=== PATIENT | male | born 1940 | race Caucasian/White ===

== ENCOUNTER 2017-01-01 09:29 | Emergency (ER) | payer MEDICARE ==
[~2017-01-01] VITALS: Ht 167.6 cm; Wt 73.0 kg
[~2017-01-01 09:29] MED LIST: ADVA250A INH; PROS5TAB2 PO; TAMS0.4C67 PO
[2017-01-01 09:35] VITALS: BP 129/84; PULSE 88; RESP 15; TEMP 97.5; O2SAT 100
[2017-01-01] MEDS ORDERED: TRIA37.5 PO (09:45)
[2017-01-01] MEDS ORDERED: FINA5TAB2 PO (09:45)
[2017-01-01] MEDS ORDERED: TAMS0.4C4 PO (09:45)
[2017-01-01] MEDS ORDERED: OXYC1CAP PO ×2 (09:45→13:43)
[2017-01-01] MEDS ORDERED: HYDROmorphone HCL PF 1 MG/ML VIAL IVS ONE (10:00)
[2017-01-01] MEDS ORDERED: SODIUM CHLORIDE 0.9% FLUSH 10 ML FLUSH IVF PRN (10:00)
[2017-01-01] MEDS ORDERED: ONDANSETRON HCL 4 MG/2 ML VIAL IVP ONE (10:00)
[2017-01-01 10:13] VITALS: O2SAT 96
[2017-01-01 10:16] LABS: AUTOMATED NEUTROPHIL # 6.6 TH/MM3 (1.8-7.7); BASOPHIL # 0.2 TH/MM3 (0-0.2); BASOPHIL % 2.4 % (0.0-2.0); EOSINOPHIL # 0.3 TH/MM3 (0-0.4); HEMATOCRIT 38.9 % (39.0-51.0); LYMPH % 7.2 % (9.0-44.0); LYMPHOCYTE # 0.6 TH/MM3 (1.0-4.8); MEAN CELL VOLUME 95.8 FL (80.0-100.0); MEAN CORPUSCULAR HGB CONC 33.4 % (32.0-36.0); MONO % 8.5 % (0.0-8.0); NEUT % 78.9 % (16.0-70.0); PLATELET COUNT 159 TH/MM3 (150-450); RED BLOOD COUNT 4.06 MIL/MM3 (4.50-5.90); RED CELL DISTRIBUTION WIDTH 15.2 % (11.6-17.2); WHITE BLOOD COUNT 8.4 TH/MM3 (4.0-11.0)
[2017-01-01 10:20] LABS: HEMO FLAGS DIFF FINAL
--- NOTE | 2017-01-01 10:40 | PD ---
HPI Chief Complaint: Pain: Acute or Chronic Time Seen by Provider: 09:48 Travel History International Travel<30 days: No Contact w/Intl Traveler<30days: No Traveled to known affect area: No History of Present Illness HPI 76 -year-old male has chronic back pain. He has undergone various different procedures by a spine interventionalist in [place]. Evidently he's been unable to get in touch with this clinician despite severe constant back pain following the interventions. The patient notes pain radiating from the right back to the region of the heel on the right side. Full extension of the knee causes pain to radiate to the right back from the leg. He's had no fever. He reports that due to pain he is unable to walk. He also believes he is weak in the right leg on account of chronic back disease. He has lymphoma and has undergone chemotherapy most recently 1 month prior. No overflow urinary incontinence. No change in bowel habits. No perianal/perineal paresthesia. PFSH Past Medical History Arthritis: Yes Cancer: Yes (LUNG CANCER,LYMPHOMA) Cardiovascular Problems: Yes (RIGHT BBB, HIGH CHOLESTEROL) Chemotherapy: Yes (2-3 WEEKS AGO) Diabetes: No Diminished Hearing: No Endocrine: No Gastrointestinal Disorders: Yes (reflux) Genitourinary: Yes (BPH-ENLARGED PROSTATE) Hepatitis: No Hiatal Hernia: No Hypertension: Yes Immune Disorder: No Implanted Vascular Access Dvce: Yes (LT CHEST) Musculoskeletal: Yes (BACK PAIN, NECK PAIN) Neurologic: No Psychiatric: No Reproductive: No Respiratory: Yes ( LEFT LOWER LOBE REMOVED) Immunizations Current: Yes Thyroid Disease: No ?: Not Past Surgical History Abdominal Surgery: Yes (TRIPLE HERNIA REPAIR) AICD: No Body Medical Devices: MESH, LEFT CHEST PORT Cardiac Surgery: No Ear Surgery: No Endocrine Surgery: No Eye Surgery: Yes (LASIX) Genitourinary Surgery: Yes (KIDENY STONE EXTRACTION) Joint Replacement: No Oral Surgery: No Pacemaker: No Thoracic Surgery: Yes (LEFT LOWER LOBECTOMY, LEFT CHEST PORT) Other Surgery: Yes Social History Alcohol Use: Yes (WINE DAILY) Tobacco Use: No Substance Use: No Allergies-Medications (Allergen,Severity, Reaction): Coded Allergies: No Known Allergies (Verified , 01/01/17) Reported Meds & Prescriptions Reported Meds & Active Scripts Active Lortab (Hydrocodone-Acetaminophen) 7.5-325 Mg Tab 1-2 Tab PO Q6H PRN Oxycodone (Oxycodone HCl) 5 Mg Cap 5 Mg PO Q8H PRN Reported Oxycodone (Oxycodone HCl) 5 Mg Cap Unknown Dose PO Q4H PRN Triamterene-Hydrochlorothiazide 37.5-25 Mg Tab 1 Tab PO DAILY Finasteride 5 Mg Tab 5 Mg PO DAILY Do not crush. Tamsulosin (Tamsulosin HCl) 0.4 Mg Cap Unknown Dose PO HS Review of Systems Except as stated in HPI: all other systems reviewed are Neg General / Constitutional: No: Fever, Chills Physical Exam Narrative GENERAL: 76 yo M, NAD, WNWD SKIN: Warm and dry. HEAD: Atraumatic. Normocephalic. EYES: Pupils equal and round. No scleral icterus. No injection or drainage. ENT: No nasal bleeding or discharge. Mucous membranes pink and moist. NECK: Trachea midline. No JVD. CARDIOVASCULAR: Regular rate and rhythm. RESPIRATORY: No accessory muscle use. Clear to auscultation. Breath sounds equal bilaterally. GASTROINTESTINAL: Abdomen soft, non-tender, nondistended. Hepatic and splenic margins not palpable. MUSCULOSKELETAL: Extremities without clubbing, cyanosis, or edema. No obvious deformities. NEUROLOGICAL: PSYCHIATRIC: Appropriate mood and affect; insight and judgment normal. Data Data Last Documented VS Vital Signs Date Time Temp Pulse Resp B/P Pulse Ox O2 Delivery O2 Flow Rate FiO2 01/01/17 11:36 76 18 122/78 99 01/01/17 09:35 97.5 Orders Complete Blood Count With Diff (01/01/17 09:57) Basic Metabolic Panel (Bmp) (01/01/17 09:57) Westergren Sedimentation Rate (01/01/17 09:57) C-Reactive Protein (Crp) (01/01/17 09:57) Ecg Monitoring (01/01/17 09:57) Iv Access Insert/Monitor (01/01/17 09:57) Oximetry (01/01/17 09:57) Sodium Chloride 0.9% Flush (Ns Flush) (01/01/17 10:00) Ondansetron Inj (Zofran Inj) (01/01/17 10:00) Hydromorphone Pf Inj (Dilaudid Pf Inj) (01/01/17 10:00) Lorazepam Inj (Ativan Inj) (01/01/17 10:45) Mri L Spine W/O Contrast (01/01/17 ) Mri T Spine W/O Contrast (01/01/17 ) Labs Laboratory Tests Test 01/01/17 10:09 White Blood Count 8.4 TH/MM3 Red Blood Count 4.06 MIL/MM3 Hemoglobin 13.0 GM/DL Hematocrit 38.9 % Mean Corpuscular Volume 95.8 FL Mean Corpuscular Hemoglobin 32.0 PG Mean Corpuscular Hemoglobin 33.4 % Concent Red Cell Distribution Width 15.2 % Platelet Count 159 TH/MM3 Mean Platelet Volume 8.2 FL Neutrophils (%) (Auto) 78.9 % Lymphocytes (%) (Auto) 7.2 % Monocytes (%) (Auto) 8.5 % Eosinophils (%) (Auto) 3.0 % Basophils (%) (Auto) 2.4 % Neutrophils # (Auto) 6.6 TH/MM3 Lymphocytes # (Auto) 0.6 TH/MM3 Monocytes # (Auto) 0.7 TH/MM3 Eosinophils # (Auto) 0.3 TH/MM3 Basophils # (Auto) 0.2 TH/MM3 CBC Comment DIFF FINAL Differential Comment Erythrocyte Sedimentation Rate 1 mm/hr Sodium Level 139 MEQ/L Potassium Level 3.4 MEQ/L Chloride Level 102 MEQ/L Carbon Dioxide Level 29.8 MEQ/L Anion Gap 7 MEQ/L Blood Urea Nitrogen 46 MG/DL Creatinine 2.40 MG/DL Estimat Glomerular Filtration 26 ML/MIN Rate Random Glucose 114 MG/DL Calcium Level 9.5 MG/DL C-Reactive Protein 0.45 MG/DL [facility] Medical Decision Making Medical Screen Exam Complete: Yes Emergency Medical Condition: Yes Medical Record Reviewed: Yes Differential Diagnosis epidural abscess, paraspinal hematoma, cauda equina, spinal stenosis, Narrative Course CBC & BMP Diagram 01/01/17 10:09 ESR 1 CRP 0.45 Last 24 hours Impressions Thoracic Spine MRI 01/01/17 0000 Signed Impressions: Service Date/Time: Sunday, January 01, 2017 12:28 - CONCLUSION: 1. No evidence of metastatic disease in the thoracic spine. 2. Degenerative findings. Central canal diameter and neural foraminal diameters within normal limits at all levels. Gómez Georges MD Lumbar Spine MRI 01/01/17 0000 Signed Impressions: Service Date/Time: Sunday, January 01, 2017 12:28 - CONCLUSION: Multilevel degenerative findings. No evidence of metastatic disease. 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 Gómez Georges MD The patient is resting comfortably and feels better, is alert and in no distress. The patients results and examination findings were discussed. The repeat examination is unremarkable and benign. The history, exam, diagnostic testing, and current condition do not suggest any significant pathology to warrant further testing, continued ED treatment, admission, or surgical evaluation at this point. The vital signs have been stable. The patient does not have uncontrollable pain, intractable vomiting, or other significant symptoms. The patient's condition is stable and appropriate for discharge. The patient will pursue further outpatient evaluation with a primary care physician or other designated or consulting physician as indicated in the discharge instructions. The patient expressed understanding and was agreeable with this plan. Diagnosis Primary Impression: Low back pain Qualified Code: M54.41 - Chronic midline low back pain with right-sided sciatica Referrals: Eugenio Kendrick MD,Torey Heard MD, MD Additional Instructions: You have a choice when it comes to health care, and we are glad that you chose [facility]. Hopefully, we have met your expectations on today's visit. You are welcome to return to [facility] at any time, as we are committed to meeting the health care needs of our community. Med/Other Pt SpecificInfo: Prescription(s) given Scripts Hydrocodone-Acetaminophen (Lortab)7.5-325 Mg Tab1-2 Tab PO Q6H PRN (PAIN SCALE 6 TO 10) #20 TAB Ref 0 Prov:Rudy Stokes MD 01/01/17 Oxycodone 5 Mg Cap5 Mg PO Q8H PRN (PAIN SCALE 6 TO 10) #12 CAP Ref 0 Prov:Rudy Stokes MD 01/01/17 Disposition: 01 DISCHARGE HOME Condition: Stable Rudy Stokes MD Jan 01, 2017 10:40
[2017-01-01] MEDS ORDERED: LORazepam 2 MG/ML VIAL IV PUSH ONE (10:45)
[2017-01-01 10:48] LABS: POTASSIUM 3.4 MEQ/L (3.5-5.1)
[2017-01-01 10:51] LABS: BICARBONATE 29.8 MEQ/L (21.0-32.0)
[2017-01-01 11:36] VITALS: BP 122/78; PULSE 76; RESP 18; O2SAT 99
--- NOTE | 2017-01-01 13:28 | RADHPO ---
EXAM DATE/TIME: 01/01/2017 12:28 [facility] COMPARISON: No previous studies available for comparison. INDICATIONS : Pain with right lower extemity pain and weakness. MEDICAL HISTORY : Lymphoma. Hypertension. Anemia. SURGICAL HISTORY : Tonsillectomy. Cholecystectomy. Inguinal hernia repair. ENCOUNTER: Initial ACUITY: 1 day PAIN SCORE: 3/10 LOCATION: Paraspinal TECHNIQUE: Multiplanar multisequence MRI of the thoracic spine was performed. FINDINGS: VERTEBRA: Schmorl's nodes at T9-10, T10-11, T11-12, and T12-L1. Bone marrow signal otherwise within normal limi ts. ALIGNMENT: Normal. CORD: Normal position and configuration. T1-T2: Normal. T2-T3: The thecal sac has a normal diameter. No evidence of disc bulge or protrusion. T3-T4: The thecal sac has a normal diameter. No evidence of disc bulge or protrusion. T4-T5: The thecal sac has a normal diameter. No evidence of disc bulge or protrusion. T5-T6: The thecal sac has a normal diameter. No evidence of disc bulge or protrusion. T6-T7: The thecal sac has a normal diameter. No evidence of disc bulge or protrusion. T7-T8: Broad-based disc osteophyte complex. Central canal diameter within normal limits. Neural foraminal di ameters within normal limits. T8-T9: Central disc protrusion. Central canal diameter within normal limits. Neural foraminal diameters with in normal limits. T9-T10: The thecal sac has a normal diameter. No evidence of disc bulge or protrusion. T10-T11: The thecal sac has a normal diameter. No evidence of disc bulge or protrusion. T11-T12: The thecal sac has a normal diameter. No evidence of disc bulge or protrusion. T12-L1: The thecal sac has a normal diameter. No evidence of disc bulge or protrusion. CONCLUSION: 1. No evidence of metastatic disease in the thoracic spine. 2. Degenerative findings. Central canal diameter and neural foraminal diameters within normal limits at all levels. Gómez Georges MD on January 01, 2017 at 13:23 Board Certified Radiologist. This report was verified electronically.
--- NOTE | 2017-01-01 13:32 | RADHPO ---
EXAM DATE/TIME: 01/01/2017 12:28 [facility] COMPARISON: No previous studies available for comparison. INDICATIONS : Radiculopathy. Right leg pain and weakness. MEDICAL HISTORY : Lymphoma. Hypertension. Anemia. SURGICAL HISTORY : Tonsillectomy. Inguinal hernia repair. Cholecystectomy. ENCOUNTER: Initial ACUITY: 1 day PAIN SCORE: 3/10 LOCATION: Paraspinal TECHNIQUE: Multiplanar multisequence MRI of the lumbar spine was performed without contrast. FINDINGS: The most caudal appearing lumbar vertebra is numbered as L5. VERTEBRAE: Schmorl's nodes at every level and reactive bony changes adjacent to the endplates likely representin g degenerative findings. Bone marrow signal otherwise within normal limits. Bilateral pars interartic ularis defects at L5. Grade 1 anterolisthesis L5 on S1. CONUS: Normal level and configuration. T12-L1: The thecal sac has a normal diameter. No evidence of disc bulge or protrusion. The neural foramina are patent bilaterally. L1-L2: The thecal sac has a normal diameter. No evidence of disc bulge or protrusion. The neural foramina are patent bilaterally. L2-L3: Broad-based disc bulge and bilateral facet arthrosis. Central canal diameter within normal limits. Ne ural foraminal diameters within normal limits. L3-L4: Broad-based disc bulge and bilateral facet arthrosis. Central canal diameter within normal limits. Mi ld bilateral neural foraminal narrowing. L4-L5: Broad-based disc bulge and bilateral facet arthrosis. Central canal diameter within normal limits. Mi ld bilateral neural foraminal narrowing. L5-S1: Pars interarticularis defects and grade 1 anterolisthesis. Moderate bilateral neural foraminal narrow ing. Central canal diameter within normal limits. CONCLUSION: Multilevel degenerative findings. No evidence of metastatic disease. Pars interarticularis defects an d grade 1 anterolisthesis L5-S1. Gómez Georges MD on January 01, 2017 at 13:26 Board Certified Radiologist. This report was verified electronically.
[2017-01-01] MEDS ORDERED: HYDR-3534 PO (14:06)
== END 2017-01-01 14:19 | disposition home or self-care (01) ==
LOC: PHEFT 09:29
DX: M54.41 Lumbago with sciatica, right side (principal); G89.29 Other chronic pain; Z85.72 Personal history of non-Hodgkin lymphomas; I45.10 Unspecified right bundle-branch block; E78.00 Pure hypercholesterolemia, unspecified; N40.0 Benign prostatic hyperplasia without lower urinary tract symptoms; I10 Essential (primary) hypertension
CPT/HCPCS: 72146; 72148; 80048; 85025; 85652; 86140; 96374; 96375; 99285; J1170; J2060; J2405

== ENCOUNTER 2017-07-10 17:48 | Emergency (ER) | payer MEDICARE ==
[~2017-07-10] VITALS: Ht 167.6 cm; Wt 73.9 kg
[~2017-07-10 17:48] MED LIST changes: -ADVA250A INH; +FINA5TAB2 PO; +HYDR-3534 PO; +OXYC1CAP PO; -PROS5TAB2 PO; +TAMS0.4C4 PO; -TAMS0.4C67 PO; +TRIA37.5 PO
[2017-07-10 17:53] VITALS: BP 165/77; PULSE 112; RESP 18; TEMP 98.4; O2SAT 98
[2017-07-10] MEDS ORDERED: TAMS0.4C4 PO (18:10)
[2017-07-10] MEDS ORDERED: DOXY100C PO (18:10)
[2017-07-10] MEDS ORDERED: KETO2CRE TOPICAL (18:21)
--- NOTE | 2017-07-10 18:22 | PD ---
HPI Chief Complaint: Pain: Acute or Chronic Time Seen by Provider: 18:16 Travel History International Travel<30 days: No Contact w/Intl Traveler<30days: No Traveled to known affect area: No History of Present Illness HPI Patient presents with concerns of DVT or blood clots. States her friend who is visiting and saw his feet and insisted on evaluation. Reports a history of torn Achilles with regular edema about this area with increased ambulation that resolves in the morning. Bilateral discoloration of the foot for several weeks. Denies any extremity pain. He does report some unstable medicine discomfort in his bilateral thighs. Reports a recent ultrasound of negative DVT. PFSH Past Medical History Hx Anticoagulant Therapy: No Arthritis: Yes Cancer: Yes (LUNG CANCER,LYMPHOMA) Cardiovascular Problems: Yes (HTN) Chemotherapy: Yes (COMPLETED) Diabetes: No Diminished Hearing: No Endocrine: No Gastrointestinal Disorders: Yes (reflux) Genitourinary: Yes (BPH-ENLARGED PROSTATE) Hepatitis: No Hiatal Hernia: No Hypertension: Yes Immune Disorder: No Implanted Vascular Access Dvce: Yes (LT CHEST) Musculoskeletal: Yes (BACK PAIN, NECK PAIN) Neurologic: No Psychiatric: No Reproductive: No Respiratory: Yes ( LEFT LOWER LOBE REMOVED) Immunizations Current: Yes Thyroid Disease: No Tetanus Vaccination: > 5 Years Influenza Vaccination: Yes Past Surgical History Abdominal Surgery: Yes (TRIPLE HERNIA REPAIR) AICD: No Body Medical Devices: MESH, LEFT CHEST PORT Cardiac Surgery: No Ear Surgery: No Endocrine Surgery: No Eye Surgery: Yes (LASIX) Genitourinary Surgery: Yes (KIDENY STONE EXTRACTION) Joint Replacement: No Oral Surgery: No Pacemaker: No Thoracic Surgery: Yes (LEFT LOWER LOBECTOMY) Other Surgery: Yes Social History Alcohol Use: Yes (WINE DAILY) Tobacco Use: No Substance Use: No Allergies-Medications (Allergen,Severity, Reaction): Coded Allergies: morphine (Verified Allergy, Severe, 07/10/17) oxycodone (Verified Allergy, Severe, 07/10/17) Reported Meds & Prescriptions Reported Meds & Active Scripts Active Reported Doxycycline Hyclate 100 Mg Cap 100 Mg PO BID Tamsulosin (Tamsulosin HCl) 0.4 Mg Cap 0.4 Mg PO HS Triamterene-Hydrochlorothiazide 37.5-25 Mg Tab 1 Tab PO DAILY Finasteride 5 Mg Tab 5 Mg PO DAILY Do not crush. Review of Systems General / Constitutional: No: Fever Eyes: No: Visual changes HENT: No: Headaches Cardiovascular: No: Chest Pain or Discomfort Respiratory: No: Shortness of Breath Gastrointestinal: No: Abdominal Pain Genitourinary: No: Dysuria Musculoskeletal: No: Pain Skin: No Rash Neurologic: No: Weakness Psychiatric: No: Depression Endocrine: No: Polydipsia Hematologic/Lymphatic: No: Easy Bruising Physical Exam Narrative GENERAL: Well-nourished, well-developed patient. SKIN: Focused skin assessment warm/dry. HEAD: Normocephalic. EYES: No scleral icterus. No injection or drainage. NECK: Supple, trachea midline. No JVD or lymphadenopathy. CARDIOVASCULAR: Regular rate and rhythm without murmurs, gallops, or rubs. RESPIRATORY: Breath sounds equal bilaterally. No accessory muscle use. GASTROINTESTINAL: Abdomen soft, non-tender, nondistended. MUSCULOSKELETAL: No cyanosis, or edema. BACK: Nontender without obvious deformity. No CVA tenderness. Examination lower extremities reveals negative Homans bilaterally no significant erythema or edema, bilateral dorsal pedis pulses palpated, there is some mild edema about the left ankle which is not significant. Bilateral distal foot with fungal type infection that extends between the toes, there is also an area approximately 4 cm posterior to the right medial malleolus also fungal in appearance Data Data Last Documented VS Vital Signs Date Time Temp Pulse Resp B/P (MAP) Pulse Ox O2 Delivery O2 Flow Rate FiO2 07/10/17 17:53 98.4 112 18 165/77 (106) 98 MDM Medical Decision Making Medical Screen Exam Complete: Yes Emergency Medical Condition: Yes Differential Diagnosis Tinea pedis, DVT, peripheral vascular disease, normal deconditioning Narrative Course Assessment and plan discussed with patient and friend at bedside. Diagnosis Primary Impression: Athletes foot Qualified Codes: B35.3 - Tinea pedis Additional Impression: Risk for falls Patient Instructions: General Instructions Additional Instructions: Antifungal cream as indicated, encouraged regular cane use, encouraged to follow -up with PCP to discuss physical therapy. Encouraged to follow-up with PCP/ podiatry for fungal infection to assess need for oral medication. Blood pressure noted, encouraged to discuss blood pressure control with his PCP. Encouraged to return to emergency with any onset of new symptoms. Med/Other Pt SpecificInfo: Prescription(s) given Scripts Ketoconazole Topical (Ketoconazole Topical) 2% Cream 1 APPLIC TOPICAL BID for Fungal Infection, #45 GM 0 Refills Prov: Adin Gasca MD 07/10/17 Disposition: 01 DISCHARGE HOME Condition: Good Adin Gasca MD Jul 10, 2017 18:22
== END 2017-07-10 18:37 | disposition home or self-care (01) ==
LOC: PHED 17:48
DX: B35.3 Tinea pedis (principal); I10 Essential (primary) hypertension; Z72.89 Other problems related to lifestyle
CPT/HCPCS: 99283

== ENCOUNTER 2017-08-17 19:37 | Emergency (ER) | payer MEDICARE ==
[~2017-08-17] VITALS: Ht 167.6 cm; Wt 75.1 kg
[~2017-08-17 19:37] MED LIST changes: +DOXY100C PO; -HYDR-3534 PO; +KETO2CRE TOPICAL; -OXYC1CAP PO
[2017-08-17 19:57] VITALS: BP 120/63; PULSE 101; RESP 20; TEMP 98.5; O2SAT 96
--- NOTE | 2017-08-17 23:00 | PD ---
HPI Chief Complaint: Respiratory Symptoms Time Seen by Provider: 22:50 Travel History International Travel<30 days: No Contact w/Intl Traveler<30days: No Traveled to known affect area: No History of Present Illness HPI The patient is a 77-year-old male that has had a cough since April of this last year. He saw his primary care physician/massotherapist who put him on prednisone and Ceftin here about 4 days ago. He didn't get any better so he went to [facility]. [facility] told him he might have a pneumonia in sent him here. He has not had a fever. He does have a nebulizer at home. He does have a history of lung cancer and lymphoma. He states he feels wheezing often. He states he is not helped by the albuterol nebulizer treatments at home. PFSH Past Medical History Hx Anticoagulant Therapy: No Arthritis: Yes Cancer: Yes (LUNG CANCER,LYMPHOMA) Cardiovascular Problems: Yes (HTN) Chemotherapy: Yes (COMPLETED) Diabetes: No Diminished Hearing: No Endocrine: No Gastrointestinal Disorders: Yes (reflux) Genitourinary: Yes (BPH-ENLARGED PROSTATE) Hepatitis: No Hiatal Hernia: No Hypertension: Yes Immune Disorder: No Implanted Vascular Access Dvce: Yes (LT CHEST) Musculoskeletal: Yes (BACK PAIN, NECK PAIN) Neurologic: No Psychiatric: No Reproductive: No Respiratory: Yes ( LEFT LOWER LOBE REMOVED) Immunizations Current: Yes Thyroid Disease: No Tetanus Vaccination: > 5 Years Past Surgical History Abdominal Surgery: Yes (TRIPLE HERNIA REPAIR) AICD: No Body Medical Devices: MESH, LEFT CHEST PORT Cardiac Surgery: No Ear Surgery: No Endocrine Surgery: No Eye Surgery: Yes (LASIX) Genitourinary Surgery: Yes (KIDENY STONE EXTRACTION) Joint Replacement: No Oral Surgery: No Pacemaker: No Thoracic Surgery: Yes (LEFT LOWER LOBECTOMY) Other Surgery: Yes Social History Alcohol Use: Yes (WINE DAILY) Tobacco Use: No Substance Use: No Allergies-Medications (Allergen,Severity, Reaction): Coded Allergies: morphine (Verified Allergy, Severe, 08/17/17) oxycodone (Verified Allergy, Severe, 08/17/17) Reported Meds & Prescriptions Reported Meds & Active Scripts Active Duoneb (Ipratropium-Albuterol Neb) 0.5-2.5 Mg/3 Ml Neb 1 Nebule INH Q6HR NEB Reported Tamsulosin (Tamsulosin HCl) 0.4 Mg Cap 0.4 Mg PO HS Triamterene-Hydrochlorothiazide 37.5-25 Mg Tab 1 Tab PO DAILY Finasteride 5 Mg Tab 5 Mg PO DAILY Do not crush. Review of Systems Except as stated in HPI: all other systems reviewed are Neg Physical Exam Narrative GENERAL: The patient is alert, oriented 3 in no respiratory distress. His vital signs are normal except for heart rate of 101. SKIN: Focused skin assessment warm/dry. HEAD: Atraumatic. Normocephalic. EYES: Pupils equal and round. No scleral icterus. No injection or drainage. ENT: No nasal bleeding or discharge. Mucous membranes pink and moist. NECK: Trachea midline. No JVD. No neck vein distention is present. CARDIOVASCULAR: Regular rate and rhythm. No murmur appreciated. RESPIRATORY: No accessory muscle use. Clear to auscultation. Breath sounds equal bilaterally. GASTROINTESTINAL: Abdomen soft, non-tender, nondistended. Hepatic and splenic margins not palpable. MUSCULOSKELETAL: No obvious deformities. No clubbing. No cyanosis. No edema. NEUROLOGICAL: Awake and alert. No obvious cranial nerve deficits. Motor grossly within normal limits. Normal speech. PSYCHIATRIC: Appropriate mood and affect; insight and judgment normal. Data Data Last Documented VS Vital Signs Date Time Temp Pulse Resp B/P (MAP) Pulse Ox O2 Delivery O2 Flow Rate FiO2 08/18/17 00:16 98.4 95 18 123/85 (98) 96 Room Air Orders Orders Influenzae A/B Antigen (08/17/17 22:50) Chest, Pa & Lat (08/17/17 22:50) Albuterol-Ipratropium Neb (Duoneb Neb) (08/17/17 23:00) [facility] Medical Decision Making Medical Screen Exam Complete: Yes Emergency Medical Condition: Yes Medical Record Reviewed: Yes Differential Diagnosis Bronchitis, pneumonia, bronchitis with bronchospasm, viral syndrome Narrative Course The patient did not get good relief with the DuoNeb treatments. I will write him a refill of the DuoNeb treatments because his has . Impression: Bronchitis with bronchospasm the patient still has wheezes but his oximetry remains normal. Diagnosis Primary Impression: Bronchitis with bronchospasm Additional Impression: Viral URI Additional Instructions: Follow-up with Drs. Casper later on this morning. He has tried prednisone, antibiotics and nebulizer treatments but so far nothing is been working. This appears to be bronchitis with bronchospasm and it appears to be viral origin. Med/Other Pt SpecificInfo: Prescription(s) given Scripts Ipratropium-Albuterol Neb (Duoneb) 0.5-2.5 Mg/3 Ml Neb 1 NEBULE INH Q6HR NEB for Breathing Treatment, #100 NEBULE 0 Refills Prov: Armani Hayden MD 08/18/17 Disposition: 01 DISCHARGE HOME Condition: Stable Armani Hayden MD Aug 17, 2017 23:00
[2017-08-17] MEDS: RESP: ALBUTEROL 2.5 MG/IPRATROPIUM 0.5 MG NEB (SCH) INH ×3 (23:10→23:27)
--- NOTE | 2017-08-17 23:19 | RADRPT ---
EXAM DATE/TIME: 08/17/2017 22:58 [facility] COMPARISON: No previous studies available for comparison. INDICATIONS : Cough and short of breath. MEDICAL HISTORY : None. SURGICAL HISTORY : Biopsy of lymph node in throat. ENCOUNTER: Initial ACUITY: 2 days PAIN SCORE: 3/10 LOCATION: Bilateral chest FINDINGS: The heart size is normal. The lungs are clear. There is a left-sided [id number] in place. Clips ar e seen in the right upper quadrant of the abdomen. CONCLUSION: No acute disease. Aris Bartholomew MD on August 17, 2017 at 23:17 Board Certified Radiologist. This report was verified electronically.
[2017-08-18 00:16] VITALS: BP 123/85; PULSE 95; RESP 18; TEMP 98.4; O2SAT 96
[2017-08-18] MEDS ORDERED: IPRASOL INH (00:21)
== END 2017-08-18 00:33 | disposition home or self-care (01) ==
LOC: PHED 19:37
DX: J20.9 Acute bronchitis, unspecified (principal); J06.9 Acute upper respiratory infection, unspecified; B97.89 Other viral agents as the cause of diseases classified elsewhere; I10 Essential (primary) hypertension; N40.0 Benign prostatic hyperplasia without lower urinary tract symptoms; Z85.118 Personal history of other malignant neoplasm of bronchus and lung; Z85.72 Personal history of non-Hodgkin lymphomas; Z87.19 Personal history of other diseases of the digestive system; Z87.39 Personal history of other diseases of the musculoskeletal system and connective tissue
CPT/HCPCS: 71046; 87804; 94640; 94664; 99284